=== PATIENT | female | born 1975 | race Caucasian/White ===

== ENCOUNTER → 2018-05-31 | Outpatient (CLI) | payer BC ==
[2018-05-31 09:44] LABS: HEMATOCRIT 40.8 % (36.0-47.0); HEMOGLOBIN 13.9 g/dL (12.0-15.5); MEAN CORPUSCULAR HEMOGLOBIN 31.1 pg (27.0-33.4); MEAN CORPUSCULAR HGB CONC 34.1 g/dL (32.0-36.0); MEAN CORPUSCULAR VOLUME 91 fl (80-97); PLATELET COUNT 242 10^3/uL (150-450); RED BLOOD COUNT 4.47 10^6/uL (3.72-5.28); RED CELL DISTRIBUTION WIDTH 13.7 % (11.5-14.0); WHITE BLOOD COUNT 8.2 10^3/uL (4.0-10.5)
[2018-05-31 10:16] LABS: ALANINE AMINOTRANSFERASE 30 U/L (9-52); ALKALINE PHOSPHATASE 91 U/L (38-126); ANION GAP 12 (5-19); ASPARTATE AMINO TRANSFERASE 16 U/L (14-36); BILIRUBIN,DIRECT 0.2 mg/dL (0.0-0.4); BILIRUBIN,TOTAL 0.6 mg/dL (0.2-1.3); BLOOD UREA NITROGEN 10 mg/dL (7-20); CALCIUM 9.3 mg/dL (8.4-10.2); CARBON DIOXIDE 26 mmol/L (22-30); CHLORIDE 105 mmol/L (98-107); GLUCOSE 122 mg/dL (75-110); POTASSIUM 4.4 mmol/L (3.6-5.0); SODIUM 143.1 mmol/L (137-145)
== END ==
LOC: OD 09:02
PROVIDERS: ATTEND Physician Assistant Medical
DX: R53.83 Other fatigue (principal); R06.02 Shortness of breath
CPT/HCPCS: 36415; 80053; 84443; 85027

== ENCOUNTER 2018-12-20 06:25 | Day surgery (SDC) | payer BC ==
[2018-12-18 11:30] LABS: APPEARANCE,URINE CLEAR; BILIRUBIN,URINE NEGATIVE (NEGATIVE); COLOR,URINE YELLOW; GLUCOSE, URINE >=500 mg/dL (NEGATIVE); KETONES,URINE NEGATIVE (NEGATIVE); LEUKOCYTE ESTERASE,URINE NEGATIVE (NEGATIVE); NITRITE,URINE NEGATIVE (NEGATIVE); PROTEIN,URINE NEGATIVE (NEGATIVE); URINE SPECIFIC GRAVITY 1.017; UROBILINOGEN,URINE NEGATIVE mg/dL (<2.0)
[2018-12-18 11:49] LABS: HEMATOCRIT 40.8 % (36.0-47.0); HEMOGLOBIN 14.1 g/dL (12.0-15.5); MEAN CORPUSCULAR HEMOGLOBIN 31.5 pg (27.0-33.4); MEAN CORPUSCULAR HGB CONC 34.5 g/dL (32.0-36.0); MEAN CORPUSCULAR VOLUME 91 fl (80-97); PLATELET COUNT 253 10^3/uL (150-450); RED BLOOD COUNT 4.47 10^6/uL (3.72-5.28); RED CELL DISTRIBUTION WIDTH 14.2 % (11.5-14.0); WHITE BLOOD COUNT 8.1 10^3/uL (4.0-10.5)
[2018-12-18 12:09] LABS: ANION GAP 11 (5-19); BLOOD UREA NITROGEN 9 mg/dL (7-20); CALCIUM 9.3 mg/dL (8.4-10.2); CARBON DIOXIDE 23 mmol/L (22-30); CHLORIDE 105 mmol/L (98-107); GLUCOSE 154 mg/dL (75-110); POTASSIUM 4.1 mmol/L (3.6-5.0); SODIUM 139.1 mmol/L (137-145)
[~2018-12-20 06:25] MED LIST: LACTATED RINGERS 1000 ML IV PRN; LIDOCAINE 0.5% INJ-PF (5 MG/ML) 50 ML SDV SUBCUT PRN
[2018-12-20] MEDS ORDERED: SCOPOLAMINE HYDROBROMIDE 1.5 MG PATCH.TD72 ONE (07:30)
[2018-12-20] MEDS ORDERED: FAMOTIDINE INJ/PF 20 MG/2 ML SDV IV ONE (07:31)
[2018-12-20] MEDS ORDERED: METOCLOPRAMIDE HCL INJ/PF 10 MG/2 ML SDV ONE (07:32)
[2018-12-20] MEDS ORDERED: PROPOFOL INJ 200 MG/20 ML VIAL IV ONE ×2 (07:55→08:46)
[2018-12-20] MEDS ORDERED: FENTANYL CITRATE INJ/PF 100 MCG/2 ML AMPUL ONE (07:55)
[2018-12-20] MEDS ORDERED: MIDAZOLAM 2 MG/2 ML INJ ONE (07:55)
[2018-12-20] MEDS ORDERED: PROMETHAZINE HCL INJ 25 MG/1 ML VIAL IV PRN ×2 (08:16)
[2018-12-20] MEDS ORDERED: DIPHENHYDRAMINE HCL 50 MG/ML VIAL IV PRN (08:16)
[2018-12-20] MEDS ORDERED: MEPERIDINE HCL/PF INJ 25 MG/1 ML DISP.SYRIN IV PRN (08:16)
[2018-12-20] MEDS ORDERED: MORPHINE SULFATE 10 MG/ML INJ IV PRN (08:16)
[2018-12-20] MEDS ORDERED: FENTANYL CITRATE INJ/PF 100 MCG/2 ML AMPUL IV PRN ×3 (08:16)
[2018-12-20] MEDS ORDERED: LIDOCAINE 1% INJ-PF (10 MG/ML) 30 ML SDV ONE (08:22)
[2018-12-20] MEDS ORDERED: OXYCODONE-ACETAMINOPHEN 5-325 MG TABLET PO PRN (08:52)
[2018-12-20] MEDS ORDERED: PROMETHAZINE HCL INJ 25 MG/1 ML VIAL IM PRN (08:53)
[2018-12-20] MEDS ORDERED: IBUPROFEN 800 MG TABLET ONE (09:14)
--- NOTE | 2018-12-20 09:18 | OPERATIVE REPORT E ---
Operative Report NAME: JOSÉ MIGUEL STERN : 1975 AGE: 43Y DATE OF SURGERY: 12/20/2018 ROOM: PREOPERATIVE DIAGNOSIS: Retained IUD, desires replacement. POSTOPERATIVE DIAGNOSIS: Retained IUD, desires replacement. OPERATION: Hysteroscopic IUD removal and Mirena replacement. SURGEON: MARTIN HORN M.D. ANESTHESIA: LMAC, paracervical block. FINDINGS: That of a normal endometrial cavity. IUD was removed; string was wrapped around the IUD well within the cervix. New IUD [id number], expires 06/27, was inserted. The usual risks of bleeding, infection, anesthesia, damage to organs and tissues were discussed with the patient who understood. PROCEDURE: The patient was taken to the operating room and placed in modified lithotomy position. After adequate anesthesia was ascertained, paracervical block performed. Bladder was left undrained. Tenaculum placed on the anterior lip of the cervix. Cervix was dilated to admit an operative hysteroscope. Hysteroscope was placed. IUD string identified, grasped with grasping forceps, and retrieved uneventfully. New IUD was placed and string trimmed approximately 1.5 cm in length. Estimated blood loss was approximately 5 mL. At completion of procedure all sponge and needle counts were correct. DICTATING PHYSICIAN: MARTIN HORN M.D. [id number] PHY#: [id number] ID: [id number] JOB#: [id number] ACCT: [id number] cc:MARTIN HORN M.D. >
[2018-12-20 09:46] VITALS: BP 116/78
[2018-12-20] MEDS ORDERED: IBUPROFEN 800 MG TABLET PO SCH (14:00)
== END 2018-12-20 09:45 | disposition home or self-care (01) ==
LOC: OROUT 06:25
PROVIDERS: ATTEND Specialist
DX: Z30.433 Encounter for removal and reinsertion of intrauterine contraceptive device (principal); I10 Essential (primary) hypertension; E11.9 Type 2 diabetes mellitus without complications; E78.00 Pure hypercholesterolemia, unspecified; Z88.0 Allergy status to penicillin; Z79.899 Other long term (current) drug therapy; Z79.84 Long term (current) use of oral hypoglycemic drugs
CPT/HCPCS: 86900; 86901; 36415; 86850; 82962; 85027; 81025; 80048; 81001; 58300; 58579; J2250; J3010; J3490; J2765; J2704; S0028; 952

== ENCOUNTER → 2019-05-27 | Outpatient (CLI) | payer BC ==
--- NOTE | 2019-05-27 10:15 | WOMENS IMAGING REPORT ---
EXAM DESCRIPTION: 3D SCREENING MAMMO BILAT COMPLETED DATE/TIME: 05/27/2019 7:56 am REASON FOR STUDY: Z12.31 ENCOUNTER FOR SCREENING MAMMOGRAM FOR MALIGNANT NEOPLASM OF BREAST Z12.31 ENCNTR SCREEN MAMMOGRAM FOR MALIGNANT NEOPLASM OF ROGELIO COMPARISON: Baseline study EXAM PARAMETERS: Standard craniocaudal and mediolateral oblique views of each breast recorded using digital acquisition and breast tomosynthesis. Read with the assistance of CAD. .[facility] - [employer] Head Start Director Version 9.2 LIMITATIONS: None. FINDINGS: RIGHT BREAST MASSES: In the far right upper outer quadrant, about 10 cm from the nipple, a 3 cm well-circumscribed low-density nodule is present coarse dense benign calcifications likely a fibroadenoma. Follow-up r ight breast ultrasound in the upper outer quadrant is recommended for further evaluation CALCIFICATIONS: Coarse dense benign appearing calcifications associated with a well-circumscribed low -density mass upper outer quadrant right breast likely a fibroadenoma. ARCHITECTURAL DISTORTION: None. DEVELOPING DENSITY: None. ASYMMETRY: None noted. OTHER: No other significant findings. LEFT BREAST MASSES: No suspicious masses. CALCIFICATIONS: No new or suspicious calcifications. ARCHITECTURAL DISTORTION: None. DEVELOPING DENSITY: None. ASYMMETRY: None noted. OTHER: No other significant findings. IMPRESSION: Well-circumscribed right breast mass far upper outer quadrant with coarse dense benign c alcification is likely a fibroadenoma. Right breast ultrasound of this area is recommended for follo wup. No mammographic/ tomosynthesis evidence for malignancy left breast 0 Incomplete: Needs Additional Imaging Evaluation and/or prior Mammograms for Comparison. BREAST DENSITY: b. There are scattered areas of fibroglandular density. BIRAD: ASSESSMENT: 0 Incomplete: Needs Additional Imaging Evaluation and/or prior Mammograms for C omparison. RECOMMENDATION: RECOMMENDED FOLLOW-UP: Follow-up diagnostic Right breast ultrasound The patient will be contacted for additional imaging. COMMENT: The patient has been notified of the results by letter per MQSA requirements. Additional no tification policies are in place for contacting patient with suspicious or incomplete findings. Quality ID #225: The [employer] recommends an annual screening mammogram for women aged 40 years or over. This facility utilizes a reminder system to ensure that all patients receive reminder letters, and/or direct phone calls for appointments. This includes reminders for routine scr eening mammograms, diagnostic mammograms, or other Breast Imaging Interventions when appropriate. Th is patient will be placed in the appropriate reminder system. TECHNICAL DOCUMENTATION: FINDING NUMBER: (1) ASSESSMENT: (1) JOB ID: [id number] [employer]- All Rights Reserved Reading location - IP/workstation name: [email or web address]
== END ==
LOC: WI 07:19
PROVIDERS: ATTEND Specialist
DX: Z12.31 Encounter for screening mammogram for malignant neoplasm of breast (principal)
CPT/HCPCS: 77063; 77067

== ENCOUNTER → 2019-06-04 | Outpatient (CLI) | payer BC ==
--- NOTE | 2019-06-04 09:42 | WOMENS IMAGING REPORT ---
EXAM DESCRIPTION: U/S BREAST UNILAT LIMITED COMPLETED DATE/TIME: 06/04/2019 8:36 am REASON FOR STUDY: N63.11 BREAST ULTRASOUND N63.11 UNSPECIFIED LUMP IN THE RIGHT BREAST, UPPER OUTER WILLIAM COMPARISON: 05/27/2019 screening mammography. TECHNIQUE: Static and Realtime grayscale interrogation of focal area(s) of concern in the right ute st(s) acquired. Selected color doppler/spectral images saved to PACS. LIMITATIONS: None. FINDINGS: Masses:In the upper outer quadrant at approximately 10- 11 o'clock, there is an ovoid génesis d-appearing but generally nonvascular mass which measures up to 2.7 cm maximally. Smooth margins. V ariable internal echogenicity, slightly hyperechoic generally. Associated artifact related to coarse benign calcifications seen on recent baseline screening mammography. Architecture:No alteration of normal morphology. No skin thickening. No edema. Other: None. IMPRESSION: Mass in the upper outer quadrant has no overtly suspicious features. Likely a fibroaden susanne based on mammography and today's ultrasound. BIRAD: 2 Benign findings.. RECOMMENDATION: RECOMMENDED FOLLOW-UP: Yearly mammographic screening. COMMENT: The [employer] (ACR) has developed recommendations for screening MRI of the breasts in certain patient populations, to be used in conjunction with mammography. Breast MRI s urveillance may be appropriate for women with more than 20% lifetime risk of developing breast cancer as determined by genetic testing, significant family history of the disease, or history of mantle r adiation for Hodgkins Disease. ACR Practice Guidelines 2008. TECHNICAL DOCUMENTATION: FINDING NUMBER: (1) ASSESSMENT: (1) JOB ID: [id number] [employer]- All Rights Reserved Reading location - IP/workstation name: [email or web address]
== END ==
LOC: WI 07:50
PROVIDERS: ATTEND Specialist
DX: N63.11 Unspecified lump in the right breast, upper outer quadrant (principal)
CPT/HCPCS: 76642

== ENCOUNTER → 2019-07-04 | Outpatient (CLI) | payer BC ==
--- NOTE | 2019-07-07 13:13 | RADIOLOGY REPORT (SQ) ---
EXAM DESCRIPTION: C SP 4 OR 5 VIEWS COMPLETED DATE/TIME: 07/07/2019 10:55 am REASON FOR STUDY: CERVICALGIA M54.2 CERVICALGIA R51 HEADACHE R20.2 PARESTHESIA OF SKIN COMPARISON: None. NUMBER OF VIEWS: Five views. TECHNIQUE: AP, lateral, obliques and odontoid radiographic images acquired of the cervical spine. LIMITATIONS: None. FINDINGS: MINERALIZATION: Normal. ALIGNMENT: Anatomic. VERTEBRAE: Vertebral bodies of normal height. DISCS: There is disc narrowing at C6-7 with marginal osteophytes. FORAMINA: No osteophytes or foraminal narrowing. LATERAL AND POSTERIOR ELEMENTS: Facets, lateral masses and spinous processes without significant find ings. HARDWARE: None in the spine. SOFT TISSUES: No masses or calcifications. Lung apices clear. OTHER: No other significant finding. IMPRESSION: Degenerative disc disease spondylosis. TECHNICAL DOCUMENTATION: JOB ID: [id number] [employer]- All Rights Reserved Reading location - IP/workstation name: [email or web address]
== END ==
LOC: OD 16:05
PROVIDERS: ATTEND Nurse Practitioner Adult Health
DX: M50.323 Other cervical disc degeneration at C6-C7 level (principal); M47.892 Other spondylosis, cervical region; R51 Headache; R20.2 Paresthesia of skin
CPT/HCPCS: 72050

== ENCOUNTER → 2019-12-19 | Outpatient (CLI) | payer BC ==
--- NOTE | 2019-12-19 15:26 | RADIOLOGY REPORT (SQ) ---
EXAM DESCRIPTION: C SP 3 VWS OR LESS COMPLETED DATE/TIME: 12/19/2019 3:02 pm REASON FOR STUDY: ARTHRODESIS STATUS Z98.1 ARTHRODESIS STATUS COMPARISON: 07/04/2019 NUMBER OF VIEWS: Three views. TECHNIQUE: AP, lateral and odontoid radiographic images acquired of the cervical spine. LIMITATIONS: None. FINDINGS: MINERALIZATION: Normal. ALIGNMENT: Straightening of the normal cervical lordosis. VERTEBRAE: Vertebral bodies of normal height. DISCS: No significant disc space narrowing. No large osteophytes. HARDWARE: Anterior fusion hardware at C5-C7 without evidence of complication. SOFT TISSUES: No masses or calcifications. Lung apices clear. OTHER: No other significant finding. IMPRESSION: No evidence of acute bony abnormality. Anterior fusion hardware at C5-C7 without evidence of complication. TECHNICAL DOCUMENTATION: JOB ID: [id number] 2010 [employer]- All Rights Reserved Reading location - IP/workstation name: [email or web address]
== END ==
LOC: OD 14:47
PROVIDERS: ATTEND Nurse Practitioner Acute Care
DX: Z47.89 Encounter for other orthopedic aftercare (principal); Z98.1 Arthrodesis status
CPT/HCPCS: 72040

== ENCOUNTER → 2020-04-23 | Outpatient (CLI) | payer BC ==
--- NOTE | 2020-04-23 15:45 | RADIOLOGY REPORT (SQ) ---
EXAM DESCRIPTION: C SP 3 VWS OR LESS IMAGES COMPLETED DATE/TIME: 04/23/2020 3:25 pm REASON FOR STUDY: CERVICAL RADICULOPATHY M54.12 RADICULOPATHY, CERVICAL REGION COMPARISON: 12/19/2019 TECHNIQUE: Lateral flexion and extension radiographs of the cervical spine. NUMBER OF VIEWS: Two views. LIMITATIONS: None. FINDINGS: Normal alignment, maintained throughout flexion and extension. No abnormal motion. OTHER: Prior anterior fusion from C5 through C7. IMPRESSION: NO RADIOGRAPHIC EVIDENCE OF ABNORMAL MOTION. TECHNICAL DOCUMENTATION: JOB ID: [id number] 2010 [employer]- All Rights Reserved Reading location - IP/workstation name: [email or web address]
== END ==
LOC: OD 14:29
PROVIDERS: ATTEND Nurse Practitioner Family
DX: M54.12 Radiculopathy, cervical region (principal)
CPT/HCPCS: 72040

== ENCOUNTER → 2020-05-28 | Outpatient (CLI) | payer BC ==
--- NOTE | 2020-05-28 13:19 | WOMENS IMAGING REPORT ---
EXAM DESCRIPTION: 3D SCREENING MAMMO BILAT IMAGES COMPLETED DATE/TIME: 05/28/2020 11:31 am REASON FOR STUDY: Z12.31 ENCOUNTER FOR SCREENING MAMMOGRAM FOR MALIGNANT NEOPLASM OF BREAST Z12.31 ENCNTR SCREEN MAMMOGRAM FOR MALIGNANT NEOPLASM OF ROGELIO COMPARISON: 2019 EXAM PARAMETERS: Standard craniocaudal and mediolateral oblique views of each breast recorded using digital acquisition and breast tomosynthesis. Read with the assistance of CAD. .[facility] - [employer] Pmo Project Manager Version 9.2 LIMITATIONS: None. FINDINGS: Findings present which are benign by mammographic criteria. No suspicious masses, calcific ations or architectural distortion. Pertinent benign findings: Chronic RUOQ mass with calcifications. Benign mammographic findings may include one or more of the following: Smooth masses, popcorn/rim/coa rse calcifications, asymmetries, post-procedure changes, and lesions with long-standing stability. IMPRESSION: BENIGN MAMMOGRAPHIC FINDINGS. BIRADS 2 BREAST DENSITY: c. The breasts are heterogeneously dense, which may obscure small masses. BIRAD: ASSESSMENT: 2 BENIGN FINDING(S) RECOMMENDATION: ROUTINE SCREENING COMMENT: The patient has been notified of the results by letter per SA requirements. Additional no tification policies are in place for contacting patient with suspicious or incomplete findings. Quality ID #225: The [employer] recommends an annual screening mammogram for women aged 40 years or over. This facility utilizes a reminder system to ensure that all patients receive reminder letters, and/or direct phone calls for appointments. This includes reminders for routine scr eening mammograms, diagnostic mammograms, or other Breast Imaging Interventions when appropriate. Th is patient will be placed in the appropriate reminder system. TECHNICAL DOCUMENTATION: FINDING NUMBER: (1) ASSESSMENT: (1) JOB ID: [id number] 2010 [employer]- All Rights Reserved Reading location - IP/workstation name: [email or web address]
== END ==
LOC: WI 10:20
PROVIDERS: ATTEND Nurse Practitioner Adult Health
DX: Z12.31 Encounter for screening mammogram for malignant neoplasm of breast (principal)
CPT/HCPCS: 77063; 77067

== ENCOUNTER → 2020-08-27 | Outpatient (CLI) | payer BC ==
--- NOTE | 2020-08-27 08:38 | RADIOLOGY REPORT (SQ) ---
EXAM DESCRIPTION: CERV SP 3 VIEW OR LESS IMAGES COMPLETED DATE/TIME: 08/27/2020 7:53 am REASON FOR STUDY: M54.12 RADICULOPATHY, CERVICAL REGION M54.12 RADICULOPATHY, CERVICAL REGION COMPARISON: 04/23/2020 TECHNIQUE: Lateral flexion and extension radiographs of the spine. NUMBER OF VIEWS: Two views. LIMITATIONS: None. FINDINGS: Minimal anterior translation of C2 on C3 in flexion. OTHER: Prior anterior fusion from C5 through C7. IMPRESSION: Mild anterior translation of C2 on C3 in flexion. TECHNICAL DOCUMENTATION: JOB ID: [id number] [employer]- All Rights Reserved Reading location - IP/workstation name: [email or web address]
== END ==
LOC: RAD 07:37
PROVIDERS: ATTEND Nurse Practitioner Family
DX: M54.12 Radiculopathy, cervical region (principal)
CPT/HCPCS: 72040

== ENCOUNTER → 2020-10-28 | Outpatient (CLI) | payer BC ==
--- OUTSIDE RECORDS SUMMARY | 2020-10-28 08:02 | XMS REPORT ---
:1975 [facility] [place] [address] [place] [id number] Care Team Providers Name Role Phone AYALA Primary Care Physician Unavailable Allergies, Adverse Reactions, Alerts Allergy Name Allergy Status Severity Reaction(s) Onset Inactive Treat ing Comments Type Date Date Clinician Penicillins Allergy to Active Moderate Hives substance to severe Medications Ordered Filled Start Stop Current Ordering Indication Dosage Frequency Signature Comments Components Medication Medication Date Date Medication? Clinician (SIG) Name Name benzonatate No benzonatat 100 mg e 100 mg capsule capsule clotrimazol No clotrimazo e-betametha le-betamet sone 1 hasone 1 %-0.05 % %-0.05 % topical topical cream APPLY cream TOPICALLY APPLY TO AFFECTED TOPICALLY AREA PRN TO AFFECTED AREA PRN Contrave 8 No Contrave 8 mg-90 mg mg-90 mg tablet,exte tablet,ext nded ended release release doxycycline No doxycyclin hyclate 100 e hyclate mg tablet 100 mg tablet hydrochloro No hydrochlor thiazide 25 othiazide mg tablet 25 mg tablet ibuprofen No ibuprofen 800 mg 800 mg tablet TK 1 tablet TK T PO 3 1 T PO 3 TIMES A DAY TIMES A DAY Invokana No Invokana 100 mg 100 mg tablet TK 1 tablet TK T PO ONCE D 1 T PO ONCE D lisinopril No lisinopril 5 mg tablet 5 mg tablet meclizine No meclizine 25 mg 25 mg tablet tablet methocarbam No methocarba ol 500 mg mol 500 mg tablet tablet ondansetron No ondansetro HCl 4 mg n HCl 4 mg tablet tablet scopolamine No scopolamin 1 mg over 3 e 1 mg days over [address] patch [address] transderma 1 PATCH l patch TRANSDERMAL PLACE 1 LY BEHIND PATCH RIGHT EAR TRANSDERMA AND REPLACE LLY BEHIND EVERY 3 RIGHT EAR DAYS AND REPLACE EVERY 3 DAYS tobramycin No tobramycin 0.3 % eye 0.3 % eye drops drops azithromyci No azithromyc n 250 mg in 250 mg tablet tablet Problems This patient has no known problems. Procedures Procedure Date / Time Performed Performing Clinician Devic e Cholecystectomy 2014-10-08 00:00:00 Tonsillectomy 2012-10-08 00:00:00 Results Test Description Test Time Test Comments Text Results Atomic Results Result Comments Rapid Strep\S\ 2017-05-17 19:10:00 Test Item Value Reference Range Comments Rapid Strep (test code = RAPIDSTREP) negative N/A Assessments Condition Name Status Diagnosis Date Treating Clinici an Carpal tunnel syndrome Active 2019-08-13 13:23:47 Encounters Start End Encounter Admission Attending Care Care Encounter Date/Time Date/Time Type Type Clinicians Facility Department ID 2019-08-13 2019-08-13 Jacques [facility] [id number] 00:00:00 00:00:00 MD Catherine: [facility].A[facility] [id number] [place] [id number], Ph. Social History Smoking Status Start Date Stop Date Former Smoker Vital Signs Vital Name Observation Time Observation Value Comments Height 2019-08-13 00:00:00 63 [in_i] BMI (Body Mass Index) 2019-08-13 00:00:00 37.4 kg/m2 Body Weight 2019-08-13 00:00:00 211 [lb_av] Hospital Discharge Instructions 1. Carpal tunnel syndrome Discussion Note: None recorded. Patient educational handouts: No information available.
--- NOTE | 2020-10-28 10:08 | RADIOLOGY REPORT (SQ) ---
EXAM DESCRIPTION: MRI CERVICAL SPINE WITHOUT IMAGES COMPLETED DATE/TIME: 10/28/2020 8:15 am REASON FOR STUDY: CERVICAL RADICULOPATHY M54.12 RADICULOPATHY, CERVICAL REGION COMPARISON: 08/27/2020 TECHNIQUE: Sagittal and Axial imaging includes T1, T2, STIR and gradient echo sequences. LIMITATIONS: ACDF hardware confers metallic susceptibility weighted artifact, limiting evaluation of the surrounding structures. FINDINGS: ALIGNMENT: Relative straightening of the normal lordotic curvature. VERTEBRAE: Intact. BONE MARROW: Normal. No marrow replacement or reactive changes. DISCS: Status post anterior cervical disc fusion spanning the C5 through C7 levels with interbody spa cers. The remaining intervertebral disc heights and signal appear preserved. HARDWARE: ACDF hardware spanning C5 through C7 without evidence of gross hardware complication. CORD AND BASE OF BRAIN: Normal in size and signal intensity. SOFT TISSUES: No soft tissue masses. C1-C2: No significant spinal stenosis. C2-C3: No significant spinal stenosis or exit foraminal stenosis. C3-C4: No significant spinal stenosis or exit foraminal stenosis. C4-C5: No significant spinal stenosis or exit foraminal stenosis. C5-C6: Surgical level with uncovertebral hypertrophy resulting in mild bilateral neural foraminal ramos rowing. The central canal remains widely patent. C6-C7: Postsurgical level with uncovertebral hypertrophy resulting in mild right, moderate left neura l foraminal narrowing and mild central canal narrowing. C7-T1: No significant spinal stenosis or exit foraminal stenosis. UPPER THORACIC: Incompletely imaged. No significant spinal stenosis or exit foraminal stenosis. OTHER: No other significant finding. IMPRESSION: Status post C5-C7 ACDF without evidence of hardware complication. Mild uncovertebral hy pertrophy at the C5/6 and C6/7 levels results an the appearance of neural foraminal narrowing most si gnificantly affecting the left C6/7 level. TECHNICAL DOCUMENTATION: JOB ID: [id number] 2010 [employer]- All Rights Reserved Reading location - IP/workstation name: [email or web address]
== END ==
LOC: RAD 07:59
PROVIDERS: ATTEND Physician Assistant
DX: M54.12 Radiculopathy, cervical region (principal); M48.02 Spinal stenosis, cervical region
CPT/HCPCS: 72141